=== PATIENT | male | born 2000 | race Caucasian/White ===

== ENCOUNTER 2023-05-04 16:17 | Emergency (ER) | payer OTHER, SELFPAY ==
[2023-05-04 16:25] VITALS: BP 158/106; PULSE 107; RESP 20; TEMP 36.6; O2SAT 99; BMI 22.6
[2023-05-04 16:33] VITALS: BP 137/92; PULSE 100; O2SAT 98
[2023-05-04 17:43] LABS: Basophils Absolute Auto 0.03 K/uL (0.00-0.30); Basophils Percent Auto 0.7 % (0.0-3.0); Eosinophils Absolute Auto 0.11 K/uL (0.00-0.50); Eosinophils Percent Auto 2.4 % (0.0-7.0); Hematocrit 48.6 % (37.0-53.0); Lymphocytes Absolute Auto 1.52 K/uL (0.90-2.90); Lymphocytes Percent Auto 33.3 % (20-44); Mean Corpuscular HGB Conc 35 gm/dL (32-36); Mean Corpuscular Hemoglobin 30 pg (26-34); Mean Corpuscular Volume 86 fL (80-100); Monocytes Percent Auto 12.1 % (0.0-11.0); Neutrophils Absolute Auto 2.35 K/uL (1.7-7.0); Neutrophils Percent Auto 51.5 % (42.0-72.0); Platelet Count* 213 K/uL (140-440); RDW Coefficient of Variation % 11.7 % (11.5-15.5); Red Blood Count 5.68 m/uL (4.30-5.90); White Blood Count* 4.56 K/uL (4.50-11.00)
[2023-05-04 17:51] LABS: Slide Review Reflex No
[2023-05-04 17:53] LABS: Chloride* 103 mmol/L (96-114); Potassium* 3.5 mmol/L (3.6-5.1); Sodium* 139 mmol/L (135-149)
[2023-05-04 17:56] LABS: Anion Gap 11 mEq/L (7-15); Carbon Dioxide* 25 mmol/L (20-32); Creatinine* 0.9 mg/dL (0.5-1.5); Est. Creatinine Clearance* 116.62; Estimated Glomerular Filt Rate 125 ml/min
[2023-05-04 17:57] LABS: Blood Urea Nitrogen* 12 mg/dL (5-24); Calcium* 9.6 mg/dL (8.4-10.6); Glucose* 96 mg/dL (60-115)
[2023-05-04 18:11] VITALS: BP 117/68; PULSE 100; RESP 16; TEMP 36.7; O2SAT 98
--- NOTE | 2023-05-04 18:32 | ED.ARRPALP ---
HPI - Arrhythmia/Palpitations General Date Seen: 05/04/23 Chief Complaint: Arrhythmia/Palpitations Stated Complaint: irregular heart beat Time Seen by Provider: 05/04/23 16:47 Source: patient Mode of arrival: ambulatory Limitations: no limitations History of Present Illness HPI narrative: Patient is a 22-year-old male presenting to the emergency department for a rapid heart rate. He states he has been feeling like his heart rate has been fast intermittently for the past 2 weeks. States he checked his heart rate today and nausea was fast so he can emergency department to be evaluated. He thinks it is anxiety related. He is not currently on any medication for anxiety. Denies fevers, chills, chest pain, shortness of breath lightheadedness, dizziness, abdominal pain, headache, vision changes. No family history of heart disease. He has no history of heart disease in resolving the. No other concerning medical conditions at this time. Related Data Home Medications Medication Instructions Recorded Confirmed atomoxetine 40 mg capsule 40 mg PO QAM 05/04/23 05/04/23 Allergies Allergy/AdvReac Type Severity Reaction Status Date / Time No Known Drug Allergies Allergy Verified 05/04/23 16:24 Review of Systems Status of ROS: Reports: 10 or more systems reviewed and unremarkable except as noted in History and below PFSH PFS Social History Smoking Status: Never smoker Do you use any of these nicotine containing products: None Second hand tobacco smoke exposure: No How often do you have a drink containing alcohol: never How often do you have six or more drinks on one occasion: Never AUDIT-C Alcohol total score: 0 Non-prescribed substance use: denies use service: No Exam Narrative: Exam Narrative: Const: Well-nourished, Well-developed, in mild distress Eyes: PERRL, no conjunctival injection, and symmetrical lids HENT: Atraumatic external nose and ears. Moist mucous membranes. Neck: Symmetric, trachea midline, No thyromegaly. CVS: RRR, No murmurs or gallops. Peripheral pulses 2+ and equal in all extremities RESP: Unlabored respiratory effort. Clear to auscultation bilaterally. GI: Nontender/Nondistended, No rebound or guarding. MSK:Extremities w/o deformity, Normal Active ROM Skin: Warm, Dry. No rashes or lesions. Neuro: Normal Muscle tone, No focal neurological deficits. Psych: Awake, Alert, & Oriented x3. Appropriate mood and affect. Const: Vital Signs, click to edit/add: Vital Signs - 24 hr 05/04/23 16:25 05/04/23 16:33 05/04/23 18:11 Temperature 97.8 F 98.0 F Pulse Rate [Pulse Oximeter] 107 H 100 100 Respiratory Rate 20 16 Blood Pressure [Ri ght Upper Arm] 158/106 H 137/92 H 117/68 Pulse Oximetry 99 98 98 Oxygen Delivery Me thod Room Air Room Air Room Air Course Vital Signs Vital signs: Initial Vital Signs Temperature 97.8 F 05/04/23 16:25 Temperature Source Temporal Artery Scan 05/04/23 16:25 Pulse Rate 107 H 05/04/23 16:25 Pulse Rhythm Regular 05/04/23 16:25 Respiratory Rate 20 05/04/23 16:25 Blood Pressure 158/106 H 05/04/23 16:25 Blood Pressure Mean 123 H 05/04/23 16:25 Blood Pressure Position Sitting 05/04/23 16:25 Pulse Oximetry 99 05/04/23 16:25 Oxygen Delivery Method Room Air 05/04/23 16:25 Vital Signs Temperature 97.8 F 05/04/23 16:25 Pulse Rate 107 H 05/04/23 16:25 Respiratory Rate 20 05/04/23 16:25 Blood Pressure 158/106 H 05/04/23 16:25 Pulse Oximetry 99 05/04/23 16:25 Oxygen Delivery Method Room Air 05/04/23 16:25 Temperature 98.0 F 05/04/23 18:11 Pulse Rate 100 05/04/23 18:11 Respiratory Rate 16 05/04/23 18:11 Blood Pressure 117/68 05/04/23 18:11 Pulse Oximetry 98 05/04/23 18:11 Oxygen Delivery Method Room Air 05/04/23 18:11 MDM - Arrhythmia/Palpitations MDM Narrative Medical decision making narrative: Patient is known year old male presenting went department for tachycardia. EKG was performed showing no acute abnormalities. While I was visiting with him his heart rate would jump from the low 90s to low 100s. He is asymptomatic throughout this. Thinks it is anxiety related offered him on anxiety medication emergency department and he refused. He states he has had primary care get it that way. We did order CBC, as BMP, point of care troponin. Everything returned showing no concerning abnormalities. He is on a any chest pain and no concern for pneumothorax or pulmonary embolism right now. He is also having no shortness of breath also making these diagnoses less likely. Number can EKG showing no signs of myocardial infarction. Is not in AFib and I do not see WPW on his EKG. He is doing well at this time vital signs are stable. I believe he is safe for discharge he agrees with this plan. Lab Data Labs: Lab Results 05/04/23 05/04/23 Range/Units 17:03 17:10 WBC 4.56 (4.50-11.00) K/uL RBC 5.68 (4.30-5.90) m/uL Hgb 17.0 (13.5-17.5) gm/dL Hct 48.6 (37.0-53.0) % MCV 86 (80-100) fL MCH 30 (26-34) pg MCHC 35 (32-36) gm/dL RDW Coeff of Rahul 11.7 (11.5-15.5) % Plt Count 213 (140-440) K/uL Neut % (Auto) 51.5 (42.0-72.0) % Lymph % (Auto) 33.3 (20-44) % [place] % (Auto) 12.1 H (0.0-11.0) % Eos % (Auto) 2.4 (0.0-7.0) % Baso % (Auto) 0.7 (0.0-3.0) % Neut # (Auto) 2.35 (1.7-7.0) K/uL Lymph # (Auto) 1.52 (0.90-2.90) K/uL [place] # (Auto) 0.60 (0.00-0.90) K/UL Eos # (Auto) 0.11 (0.00-0.50) K/uL Baso # (Auto) 0.03 (0.00-0.30) K/uL Abs Immat Gran (auto) 0.00 (0.00-0.30) K/uL Imm/Tot Granulo (auto) 0.0 % Sodium 139 (135-149) mmol/L Potassium 3.5 L (3.6-5.1) mmol/L Chloride 103 (96-114) mmol/L Carbon Dioxide 25 (20-32) mmol/L Anion Gap 11 (7-15) mEq/L BUN 12 (5-24) mg/dL Creatinine 0.9 (0.5-1.5) mg/dL Estimated Creat Clear 116.62 Estimated GFR 125 ml/min Glucose 96 (60-115) mg/dL Calcium 9.6 (8.4-10.6) mg/dL POC Troponin I 0.00 L (0.01-0.04) ng/ml ECG Data Attestation: I personally reviewed and interpreted this ECG as follows: Prior ECG tracings: not available for review Interpretation: Sinus tachycardia rate of 113 beats per minute, normal intervals, normal axis, no ST or T-wave abnormalities Discharge Plan Discharge Clinical Impression: Sinus tachycardia Patient Disposition: Home, Self-Care Condition: Stable Instructions: Tachycardia (ED) Additional Instructions: Set up primary care for your tachycardia and anxiety. Return to the emergency department for new or worsening symptoms. Prescriptions: No Action atomoxetine 40 mg capsule 40 mg PO QAM Follow Up/Referrals: Provider,Not a Local [Primary Care Provider] - Stand Alone Forms: MyHealth Info Instructions
== END 2023-05-04 18:49 | disposition home or self-care (01) ==
PROVIDERS: Emergency Provider Student in an Organized Health Care Education/Training Program
DX: R00.0 Tachycardia, unspecified (principal)
CPT/HCPCS: 36415; 80048; 84484; 85025; 99283